=== PATIENT | female | born 1970 | race Caucasian/White ===

== ENCOUNTER 2020-10-06 04:33 | Day surgery (SDC) | payer BC, OTHER ==
[2020-10-04 10:04] VITALS: BMI 21.4
[2020-10-06] MEDS ORDERED: CEFAZOLIN 2 GM in DEXTROSE 5%-WATER - 100 ML IVPB ONE (06:43)
[2020-10-06] MEDS ORDERED: DEXAMETHASONE SOD PHOSPHATE/PF 10 MG/ML SDV ONE (07:28)
[2020-10-06] MEDS ORDERED: BUPIVACAINE HCL/PF 0.25% (2.5MG/ML) 10 ML VIAL ONE (10:17)
[2020-10-06] MEDS ORDERED: PROPOFOL 20 ML ONE (10:46)
[2020-10-06] MEDS ORDERED: ROCURONIUM BROMIDE 50 MG/5 ML SYRINGE ONE (10:46)
[2020-10-06] MEDS ORDERED: ceFAZolin SODIUM 1 GM VIAL IVPB ONE (11:05)
[2020-10-06] MEDS ORDERED: BUPIVACAINE HCL/PF 0.5% (5 MG/ML) 30 ML VIAL IJ ONE ×2 (11:40)
[2020-10-06] MEDS ORDERED: ONDANSETRON 4 MG/2 ML VIAL IVPUSH PRN ×2 (11:47→13:20)
[2020-10-06] MEDS ORDERED: ceFAZolin SODIUM 1 GM VIAL ONE ×2 (12:24)
[2020-10-06] MEDS ORDERED: ACETAMINOPHEN INJECTION 100 ML IVPB ONE (12:24)
[2020-10-06] MEDS ORDERED: DEXAMETHASONE SOD PHOSPHATE 4 MG/1 ML VIAL ONE (12:24)
[2020-10-06] MEDS ORDERED: NEOSTIGMINE METHYLSULFATE 0.5 MG/ML - 10 ML MDV ONE (12:38)
[2020-10-06] MEDS ORDERED: oxyCODONE HCL 5 MG TABLET PO PRN (13:20)
[2020-10-06] MEDS ORDERED: DOCUSATE SODIUM 100 MG CAPSULE (FP) PO PRN (13:20)
[2020-10-06] MEDS ORDERED: SIMETHICONE 80 MG TAB.CHEW (FP) PO PRN (13:20)
[2020-10-06] MEDS ORDERED: BISACODYL 5 MG TABLET.DR (FP) PO PRN (13:20)
[2020-10-06] MEDS ORDERED: ACETAMINOPHEN 325 MG TABLET (FP) PO SCH ×2 (13:30→19:00)
[2020-10-06] MEDS ORDERED: SODIUM CHLORIDE 1,000 ML IV SCH (13:30)
[2020-10-06] MEDS ORDERED: LACTATED RINGERS SOLUTION 1,000 ML/1,000 ML INFUS.BAG IV SCH (14:00)
[2020-10-06 15:36] VITALS: TEMP 97.8
[2020-10-06 15:50] VITALS: BP 111/68; PULSE 63
[2020-10-06] MEDS ORDERED: CEFAZOLIN 1 GM/D5W 1 GM/50 ML BAG IVPB SCH (18:00)
[2020-10-06] MEDS ORDERED: CEFAZOLIN 1 GM in DEXTROSE 5%-WATER - 1 GM/50 ML IVPB IVPB SCH (19:00)
[2020-10-06] MEDS ORDERED: KETOROLAC TROMETHAMINE 30 MG/1 ML VIAL IVPUSH PRN (19:00)
[2020-10-07] MEDS ORDERED: PROGESTERONE PO SCH (10:00)
[2020-10-07] MEDS ORDERED: ESTRADIOL PO SCH (10:00)
[2020-10-07] MEDS ORDERED: ENOXAPARIN NA (PORCINE) 40 MG/0.4 ML DISP.SYRIN SQ SCH (10:00)
[2020-10-07] MEDS ORDERED: [UNRECOGNIZED DRUG - OTHER] PO SCH (10:00)
== END 2020-10-06 17:30 | disposition home or self-care (01) ==
LOC: JASUSAT 04:33 → J3W 15:33 → JASUSAT 17:30
PROVIDERS: ATTEND Specialist
PROC: 0UT74ZZ Resection of Bilateral Fallopian Tubes, Percutaneous Endoscopic Approach (ICD-10-PCS; 2020-10-06)
PROC: 8E0W4CZ Robotic Assisted Procedure of Trunk Region, Percutaneous Endoscopic Approach (ICD-10-PCS; 2020-10-06)
PROC: 0TJB8ZZ Inspection of Bladder, Via Natural or Artificial Opening Endoscopic (ICD-10-PCS; 2020-10-06)
PROC: 0UT94ZZ Resection of Uterus, Percutaneous Endoscopic Approach (ICD-10-PCS; principal; 2020-10-06 10:30)
PROC: 0UT24ZZ Resection of Bilateral Ovaries, Percutaneous Endoscopic Approach (ICD-10-PCS; 2020-10-06 10:30)
DX: D25.9 Leiomyoma of uterus, unspecified (principal); Z80.41 Family history of malignant neoplasm of ovary; N73.6 Female pelvic peritoneal adhesions (postinfective); N81.5 Vaginal enterocele
CPT/HCPCS: 52000; 58571; S2900; 86850; 86900; 86901; 86922; 88104; 88305-TC; 88307-TC; 94760; J0131